=== PATIENT | male | born 1990 | race Caucasian/White ===

== ENCOUNTER 2018-09-03 08:56 | Emergency (ER) | payer BC ==
--- NOTE | 2018-09-03 09:34 | EDM.PDOC ---
ED HPI GENERAL MEDICAL PROBLEM - General Chief Complaint: Lower Extremity Injury/Pain Stated Complaint: LEFT FOOT PAIN Time Seen by Provider: 09/03/18 09:02 Source of Information: Reports: Patient History Limitations: Reports: No Limitations - History of Present Illness INITIAL COMMENTS - FREE TEXT/NARRATIVE: History of present illness: []Patient rolled his left foot today and continue to work a full shift on it with pain in his ankle and foot. He denies any numbness or tingling and is ambulatory. She has been icing it and using ibuprofen. Review of systems: As per history of present illness and below otherwise all systems reviewed and negative. Past medical history: As per history of present illness and as reviewed below otherwise noncontributory. Surgical history: As per history of present illness and as reviewed below otherwise noncontributory. Social history: No reported history of drug or alcohol abuse. Family history: As per history of present illness and as reviewed below otherwise noncontributory. Physical exam: General: Well developed, well nourished in NAD HEENT: Atraumatic, normocephalic, pupils reactive, negative for conjunctival pallor or scleral icterus, mucous membranes moist, throat clear, neck supple, nontender, trachea midline. Lungs: Clear to auscultation, breath sounds equal bilaterally, chest nontender. Heart: S1S2, regular, negative for clicks, rubs, or JVD. Abdomen: NABS, Soft, nondistended, nontender. Negative for masses or hepatosplenomegaly. Negative for costovertebral tenderness. Pelvis: Stable nontender. Genitourinary: Deferred. Rectal: Deferred. Ext: No obvious deformity, there is mild diffuse weighted swelling over the dorsal foot with tenderness medially and laterally.negative for cords or calf pain. Neurovascular unremarkable. Neuro: Awake, alert, oriented. Cranial nerves II through XII unremarkable. Cerebellum unremarkable. Motor and sensory unremarkable throughout. Exam nonfocal. Skin:warm and dry Diagnostics: X-ray foot and ankle negative Therapeutics: Declined pain meds, air splint ED Course: Unremarkable Impression: Left ankle sprain Prescriptions: Declined pain meds Plan: Ice, elevate, ibuprofen follow-up with primary care as needed Definitive disposition and diagnosis as appropriate pending reevaluation and review of above. left foot Pain Score (Numeric/FACES): 5 - Related Data Allergies Allergy/AdvReac Type Severity Reaction Status Date / Time meperidine [From Demerol] Allergy Hives Verified 09/03/18 09:07 Sulfa (Sulfonamide Allergy Hives Verified 09/03/18 09:07 Antibiotics) Home Meds: Home Meds Dextroamphetamine/Amphetamine [Adderall] 25 mg PO DAILY 09/03/18 [History] Levothyroxine Sodium [Synthroid] 120 mcg PO DAILY 09/03/18 [History] Past Medical History HEENT History: Reports: None Cardiovascular History: Reports: None Respiratory History: Reports: None Gastrointestinal History: Reports: None Genitourinary History: Reports: None Musculoskeletal History: Reports: None Neurological History: Reports: None Psychiatric History: Reports: ADHD Endocrine/Metabolic History: Reports: Hypothyroidism Hematologic History: Reports: None Immunologic History: Reports: None Oncologic (Cancer) History: Reports: None Dermatologic History: Reports: None - Infectious Disease History Infectious Disease History: Reports: Chicken Pox - Past Surgical History Head Surgeries/Procedures: Reports: None HEENT Surgical History: Reports: None Cardiovascular Surgical History: Reports: None Respiratory Surgical History: Reports: None GI Surgical History: Reports: None Male Surgical History: Reports: None Endocrine Surgical History: Reports: None Neurological Surgical History: Reports: None Musculoskeletal Surgical History: Reports: None Oncologic Surgical History: Reports: None Dermatological Surgical History: Reports: None Social & Family History - Family History Family Medical History: Noncontributory - Tobacco Use Smoking Status *Q: Current Every Day Smoker Years of Tobacco use: 7 Packs/Tins Daily: 0.5 - Caffeine Use Caffeine Use: Reports: Energy Drinks - Recreational Drug Use Recreational Drug Use: No Review of Systems - Review of Systems Review Of Systems: ROS reveals no pertinent complaints other than HPI. ED EXAM, GENERAL - Physical Exam Exam: See Below (History of present illness) Course - Vital Signs Last Recorded V/S: Last Vital Signs Temp 97.7 F 09/03/18 09:05 Pulse 87 09/03/18 09:05 Resp 18 09/03/18 09:05 BP 129/74 09/03/18 09:05 Pulse Ox 98 09/03/18 09:05 - Orders/Labs/Meds Orders: Active Orders 24 hr Category Date Time Status Ankle Min 3V Lt [CR] Stat Exams 09/03/18 09:11 Taken Departure - Departure Time of Disposition: 10:11 Disposition: Home, Self-Care 01 Condition: Good Clinical Impression: Left ankle sprain Qualifiers: Encounter type: initial encounter Involved ligament of ankle: unspecified ligament Qualified Code(s): S93.402A - Sprain of unspecified ligament of left ankle, initial encounter - Discharge Information *PRESCRIPTION DRUG MONITORING PROGRAM REVIEWED*: No *COPY OF PRESCRIPTION DRUG MONITORING REPORT IN PATIENT JERMAINE: No Referrals: PCP,None [Primary Care Provider] - Forms: ED Department Discharge Additional Instructions: The following information is given to patients seen in the emergency department who are being discharged to home. This information is to outline your options for follow-up care. We provide all patients seen in our emergency department with a follow-up referral. The need for follow-up, as well as the timing and circumstances, are variable depending upon the specifics of your emergency department visit. If you don't have a primary care physician on staff, we will provide you with a referral. We always advise you to contact your personal physician following an emergency department visit to inform them of the circumstance of the visit and for follow-up with them and/or the need for any referrals to a consulting specialist. The emergency department will also refer you to a specialist when appropriate. This referral assures that you have the opportunity for follow-up care with a specialist. All of these measure are taken in an effort to provide you with optimal care, which includes your follow-up. Under all circumstances we always encourage you to contact your private physician who remains a resource for coordinating your care. When calling for follow-up care, please make the office aware that this follow-up is from your recent emergency room visit. If for any reason you are refused follow-up, please contact the [facility] Emergency Department at and asked to speak to the emergency department charge nurse. [facility] [address] [place] [address] - My Orders Last 24 Hours: My Active Orders 09/03/18 09:11 Ankle Min 3V Lt [CR] Stat - Assessment/Plan Last 24 Hours: My Active Orders 09/03/18 09:11 Ankle Min 3V Lt [CR] Stat
--- NOTE | 2018-09-03 09:43 | CR ---
INDICATION: Pain. TECHNIQUE: Two views of the left foot. FINDINGS: No fracture, dislocation, erosion, or intrinsic skeletal lesion. IMPRESSION: Negative two view left foot. Dictated by Toy William MD @ Sep 03 2018 9:38AM Signed by Dr. Toy William @ Sep 03 2018 9:40AM
--- NOTE | 2018-09-03 13:32 | CR ---
EXAM DATE: 09/03/18 PATIENT'S AGE: 27 Patient: GREGG ORTEZ Facility: [facility] Site . Site : 1990 Study: XRay-Extremity Left Ankle [id number]/6/2019 9:30:05 AM Ordering Physician: Doctor Harvey Final Report: INDICATION: Pain. TECHNIQUE: Three views of the left ankle. FINDINGS: Mild soft tissue swelling left lateral malleolus compatible with a sprain. No fracture or dislocation. The tibiotalar joint space is intact. IMPRESSION: Soft tissue swelling left lateral malleolus. Examination is otherwise negative. Dictated by Toy William MD @ Sep 03 2018 9:38AM Signed by: Toy William MD @09/03/2018 9:38:17 AM (Electronic Signature) Report Signed by Proxy. MTDD
== END 2018-09-03 10:34 | disposition home or self-care (01) ==
LOC: MW.ED 08:56
DX: S93.402A Sprain of unspecified ligament of left ankle, initial encounter (principal); E03.9 Hypothyroidism, unspecified; Z88.5 Allergy status to narcotic agent; Z79.899 Other long term (current) drug therapy; Z88.2 Allergy status to sulfonamides; X58.XXXA Exposure to other specified factors, initial encounter
CPT/HCPCS: 73610-26-LT; 73610-LT; 73620-26-LT; 73620-LT; 99283; 99283-25